=== PATIENT | female | born 1960 | race Caucasian/White ===

== ENCOUNTER 2022-03-10 14:47 | Emergency (ER) | payer MEDICAID, SELFPAY ==
[2022-03-10] VITALS (13 sets, daily range): BP systolic 70–118; BP diastolic 40–68; PULSE 63–74; RESP 12–16; TEMP 36.6; O2SAT 95–99; BMI 50.1
--- NOTE | 2022-03-10 14:56 | EKG12_ITS ---
Test Reason : SYNCOPE Blood Pressure : / mmHG Vent. Rate : 066 BPM Atrial Rate : 066 BPM P-R Int : 170 ms QRS Dur : 096 ms QT Int : 428 ms P-R-T Axes : 031 042 055 degrees QTc Int : 448 ms Normal sinus rhythm Normal ECG Confirmed by SONYA MCCOY, TONI ([id number]), editorial writer RENATE ELMORE ([id number]) on 03/12/2022 8:54:54 AM Referred By: Confirmed By:SUPRIYA HASSAN MD
--- NOTE | 2022-03-10 14:57 | EX.ED.DYSGE1 ---
HPI History of Present Illness Chief Complaint: Syncope Informant: patient Onset/Context/Timing Onset: Today Narrative Narrative: Patient presents [place] [employer]. Patient states that she went to the restroom with abdominal cramping and felt as if she needed to have diarrhea. She became lightheaded, dizzy, sweaty and believe she had a brief syncopal episode while sitting on the commode. She did not fall to the floor. She states she felt very weak and dizzy and knew she could not get up for quite a while and called for help. Patient denies chest pain or palpitations. Patient does report having some lightheadedness when standing recently. She had talked to her primary care physician about possibly decreasing her blood pressure medication as they are concerned her blood pressure might be dropping too low. [facility] Medical History HTN (hypertension) Home Medications lisinopril 03/10/22 [History Last Taken Unknown] Allergy/AdvReac Type Severity Reaction Status Date / Time No Known Allergies Allergy Verified 03/10/22 14:48 Social History Smoking Status: Never smoker ROS ROS ED Constitutional Constitutional ED: Denies chills or fever(s) Eyes Eyes: Denies change in vision or discharge from eye(s) ENT ENT ED: Denies discharge from eye(s), rhinorrhea or sore throat Cardiovascular Cardiovascular: Denies chest pain or palpitations Respiratory/Chest Respiratory/Chest: Denies cough or dyspnea Gastrointestinal Gastrointestinal: Reports abdominal pain, diarrhea and nausea; Denies vomiting Genitourinary Genitourinary ED: Denies difficulty urinating or dysuria Musculoskeletal Musculoskeletal: Denies back pain or extremity pain Integumentary Denies Abrasions or rash Neurologic Neurologic: Reports weakness; Denies headache(s) Psychiatric Psychiatric: Denies anxiety or depression Allergic/Immunologic Allergic/Immunologic ED: Denies lip swelling or urticaria EXAM Physical Exam Const Vital Signs: 03/10/22 14:48 03/10/22 15:01 03/10/22 15:47 Temperature 97.8 F Temperature Source Oral Pulse Rate 72 63 Respiratory Rate 12 Blood Pressure 84/64 L 70/44 L Blood Pressure Mean 70 52 Pulse Ox 95 Oxygen Delivery Method Room Air 03/10/22 15:47 03/10/22 16:17 03/10/22 17:09 Temperature Temperature Source Pulse Rate 64 73 Respiratory Rate 16 Blood Pressure 78/40 L 107/63 112/61 Blood Pressure Mean 52 77 78 Pulse Ox 99 Oxygen Delivery Method Room Air 03/10/22 17:17 03/10/22 17:43 03/10/22 18:19 Temperature Temperature Source Pulse Rate Respiratory Rate Blood Pressure 90/53 L 104/62 104/57 L Blood Pressure Mean 65 76 72 Pulse Ox Oxygen Delivery Method 03/10/22 18:54 03/10/22 19:00 03/10/22 20:00 Temperature Temperature Source Pulse Rate 69 74 Respiratory Rate 15 16 Blood Pressure 99/58 L 114/61 101/66 Blood Pressure Mean 71 78 77 Pulse Ox 99 98 Oxygen Delivery Method Room Air Room Air 03/10/22 20:35 Temperature Temperature Source Pulse Rate Respiratory Rate Blood Pressure 118/68 Blood Pressure Mean 84 Pulse Ox Oxygen Delivery Method Positive well nourished and well developed General Appearance ED: well developed HEENT Reports normocephalic and head/scalp atraumatic Eyes PERRL and EOMs intact bilaterally Neck supple Chest Wall inspection of chest normal and palpation of chest normal Resp normal respiratory effort and clear to auscultation bilaterally Cardio regular rate and regular rhythm GI non-tender Auscultation: hyperactive bowel sounds Palpation: soft Extremity normal to inspection Neuro oriented x3 and no sensory deficits noted Sensorium / Orientation: alert Motor Exam: strength 5/5 throughout Psych mental status grossly normal Skin no rashes or lesions noted MDM MDM MDM Narrative Medical decision making narrative: 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 EKG and lab work obtained. Patient bolused with IV fluids. Lab Data Attestation: I reviewed the patient's lab results. Labs: Laboratory Results - last 24 hr 03/10/22 03/10/22 15:00 15:00 WBC 9.1 RBC 4.39 Hgb 13.6 Hct 41.6 MCV 94.8 MCH 31.0 MCHC 32.7 RDW Std Deviation 48.2 H RDW Coeff of [place] 13.9 Plt Count 328 MPV 11.6 Immature Gran % (Auto) 0.200 Neut % (Auto) 85.7 H Lymph % (Auto) 8.6 L [place] % (Auto) 3.4 Eos % (Auto) 1.4 Baso % (Auto) 0.7 Absolute Neuts (auto) 7.8 H Absolute Lymphs (auto) 0.78 L Nucleated RBC % 0 Sodium 139 Potassium 3.7 Chloride 102 Carbon Dioxide 29.0 Anion Gap 8 BUN 19 H Creatinine 1.46 H Estim Creat Clear Calc 36.87 Est GFR (MDRD) Af Amer 47 L Est GFR (MDRD) Non-Af 39 L BUN/Creatinine Ratio 13.0 Glucose 205 H Calcium 9.7 Troponin I High Sens 6 Treatment and Re-Evaluation Narrative: CBC unremarkable. Chemistry studies reveal a BUN of 19 and a creatinine of 1.46. I do not have any prior values here, however I was able to find prior labs from May 2020 and [facility]. At that time her creatinine was 0.88. Her troponin is normal at 6. After 2 L of IV fluid patient's blood pressure continued to drop when bolus ended. She was given a third L of IV fluids. At this time her systolic blood pressure is remaining around 100 systolic. She states this is about where she normally runs. She was able to get up and ambulate the halls without difficulty. She will be discharged home at this time. I did encourage her to hold her blood pressure medicine at this time and follow-up with her primary care physician. Discharge Plan Triage Chief Complaint: Syncope ED Provider: Triny Arboleda Dx/Rx/DC Orders Clinical Impression: Syncope, vasovagal, Hypotension Instructions: Hypotension Dc, ED Fainting, Vagal Reaction Prescriptions: No Action lisinopril Primary Care Provider: Care Physician,No Primary Referrals: NOT,DEFINED [Non-Staff] - Activity Restrictions/Additional Instructions: Please hold your blood pressure medicine. Follow-up with her primary care physician as soon as possible. Disposition Disposition: Home, Self Care
[2022-03-10] MEDS: 0.9% Normal Saline 1,000 ML 1000 ML IV (15:00)
[2022-03-10 15:14] LABS: Absolute Lymphocyte Count 0.78 X10^3/uL (0.83-4.51); Absolute Neutrophil Count 7.8 X10^3/uL (2.0-7.7); Basophil# 0.06 X10^3/uL; Basophil% 0.7 % (0-1); Eosinophil# 0.13 X10^3/uL; Eosinophils% 1.4 % (0-5); Hematocrit 41.6 % (37-47); Hemoglobin 13.6 g/dL (12.0-15.0); Lymphocyte # 0.78 X10^3/ul (0.83-4.51); Lymphocyte % 8.6 % (19-41); Mean Corp Hgb Conc 32.7 g/dL (32-36); Mean Corpuscular Volume 94.8 fL (81-99); Mean Platelet Vol. 11.6 fl (6.2-12.0); Monocyte# 0.31 X10^3/uL; Monocyte% 3.4 % (0-10); NRBC Flagged by Analyzer 0 % (0-5); Neutrophil # 7.77 X10^3/uL (2.7-7.7); Neutrophil % 85.7 % (47-70); Platelet Count 328 K/mm3 (150-450); RBC Distribution Width CV 13.9 % (11.6-14.6); RBC Distribution Width SD 48.2 fl (35.1-43.9); Red Blood Count 4.39 M/mm3 (4.2-5.4); White Blood Count 9.1 K/mm3 (4.4-11.0)
--- NOTE | 2022-03-10 15:23 | NURSING ---
NO OLD EKGS
[2022-03-10 15:28] LABS: Anion Gap 8 (5-15); BUN 19 mg/dL (7-18); Calcium,Total 9.7 mg/dL (8.5-10.1); Chloride 102 mmol/L (98-107); Creatinine, Serum 1.46 mg/dL (0.55-1.02); EST Glomerular Filtration Rate 39 mL/min (>60); Est Glom Filt Rate - Afr Amer 47 mL/min (>60); Estimated Creatinine Clearance 36.87 ml/min; Glucose 205 mg/dL (74-106); Potassium 3.7 mmol/L (3.5-5.1); Sodium Level 139 mmol/L (136-145); Troponin-I HS 6 pg/mL (3.0-54.0)
[2022-03-10] MEDS: 0.9% Normal Saline 1,000 ML 999 ML IV (15:55)
[2022-03-10] MEDS: 0.9% Normal Saline 1,000 ML 150 ML IV (17:05)
[2022-03-10] MEDS: Mag Hydrox/Al Hydrox/Simeth 30 ML UDC PO (17:23)
[2022-03-10] MEDS: Dicyclomine 10 MG Capsule 20 MG PO (17:23)
== END 2022-03-10 20:53 | disposition home or self-care (01) ==
PROVIDERS: Emergency Provider Emergency Medicine; Visit Provider Emergency Medicine
DX: I95.1 Orthostatic hypotension (principal); I10 Essential (primary) hypertension; Z79.899 Other long term (current) drug therapy
CPT/HCPCS: 80048; 84484; 85025; 93005; 96360; 99285; J7030; A4216